=== PATIENT | male | born 1950 | race Caucasian/White ===

== ENCOUNTER 2017-07-20 19:52 | Inpatient (IN) | payer OTHER ==
[~2017-07-20] VITALS: Ht 157.5 cm; Wt 63.5 kg
[2017-08-03] MEDS ORDERED: METOPROLOL SUCC25 MG PO (12:50)
[2017-08-03] MEDS ORDERED: CLONAZEPAM1 MG PO (12:51)
[2017-08-03] MEDS ORDERED: ATORVASTATIN CA10 MG PO (12:51)
[2017-08-03] MEDS ORDERED: ASA81 MG PO (12:51)
[2017-08-03] MEDS ORDERED: ISOSORBIDE DINI30 MG PO (12:51)
[2017-08-03] MEDS ORDERED: PROZAC20 MG PO (12:52)
[2017-08-14] MEDS ORDERED: PERCOCET 5-3251 EACH PO (11:31)
[2017-08-14] MEDS ORDERED: TAMS0.4C PO (11:31)
== END 2017-08-14 13:01 | disposition home or self-care (01) | DRG 331 ==
LOC: SURG 08-03 12:15 → EDUNIT# 08-03 12:15 → O/R 08-11 05:20 → MEDI 08-11 05:20 → EDBD 08-11 12:15 → SURG 08-11 12:15 → MEDI 08-11 17:32
PROVIDERS: Surgery
PROC: 07TC4ZZ Resection of Pelvis Lymphatic, Percutaneous Endoscopic Approach (ICD-10-PCS; 2017-08-11)
PROC: 4A12X4Z Monitoring of Cardiac Electrical Activity, External Approach (ICD-10-PCS; 2017-08-11)
PROC: 4A033R1 Measurement of Arterial Saturation, Peripheral, Percutaneous Approach (ICD-10-PCS; 2017-08-11)
PROC: 0DTN4ZZ Resection of Sigmoid Colon, Percutaneous Endoscopic Approach (ICD-10-PCS; principal; 2017-08-11 07:00)
DX: D12.8 Benign neoplasm of rectum (principal); I11.9 Hypertensive heart disease without heart failure; I25.10 Atherosclerotic heart disease of native coronary artery without angina pectoris; C61 Malignant neoplasm of prostate; I87.2 Venous insufficiency (chronic) (peripheral); I25.2 Old myocardial infarction; D50.0 Iron deficiency anemia secondary to blood loss (chronic); J44.9 Chronic obstructive pulmonary disease, unspecified

== ENCOUNTER 2017-08-10 10:23 | Day surgery (SDC) | payer OTHER ==
[~2017-08-10 10:23] MED LIST: ASA81 MG PO; ATORVASTATIN CA10 MG PO; CLONAZEPAM1 MG PO; ISOSORBIDE DINI30 MG PO; METOPROLOL SUCC25 MG PO; PROZAC20 MG PO
== END 2017-08-10 16:40 | disposition home or self-care (01) ==
LOC: EDBD → AMB-ENDOS 10:23 → CIR.AMB 12:15 → AMB-ENDOS 13:49
DX: K62.89 Other specified diseases of anus and rectum (principal)